=== PATIENT | female | born 1965 | race Two or more races ===

== ENCOUNTER 2023-02-17 17:48 | Emergency (ER) | payer BC ==
[~2023-02-17] VITALS: Ht 167.6 cm; Wt 48.1 kg
--- NOTE | 2023-02-17 18:52 | NUR ---
pt was bib RA DUE TO ALC INTOXICATION. NEIGHBORS CALLED 911, SHE WAS WANDERING THE STREETS. PT PUT ON BED AND WAS RESTRAINTS 2POINTS, DUE TO UNCONTROLLED BEHAVIOR. PUT ON MONITOR AND PULSE.
[2023-02-17 20:40] VITALS: BP 113/89
--- NOTE | 2023-02-17 20:40 | NUR ---
Patient discharged to home in stable condition. Written and verbal after care instructions given. Patient verbalizes understanding of instruction.
== END 2023-02-17 20:41 | disposition home or self-care (01) ==
LOC: ER 18:15
DX: F10.129 Alcohol abuse with intoxication, unspecified (principal); Z60.2 Problems related to living alone; Y90.9 Presence of alcohol in blood, level not specified

== ENCOUNTER 2025-05-31 20:10 | Emergency (ER) | payer BC ==
[~2025-05-31] VITALS: Ht 165.1 cm; Wt 63.5 kg
[2025-05-31 20:12] VITALS: TEMP 98.3
[2025-05-31 20:35] LABS: PLATELET COUNT (AUTO) 527 K/uL (150-450); RED BLOOD CELL COUNT(AUTO) 4.17 MIL/uL (4.0-5.2); RED CELL DISTRIBUTION WIDTH 15.6 % (11.5-15.0); WHITE BLOOD COUNT (AUTO) 5.8 K/uL (4.3-11.0)
[2025-05-31 20:44] LABS: CALCIUM, SERUM 8.4 mg/dL (8.5-10.1); CREATININE 0.4 mg/dL (0.6-1.3); SODIUM SERUM 137 mmol/L (136-145); UREA NITROGEN, BLOOD 8 mg/dL (7-18)
[2025-05-31 20:50] LABS: ALCOHOL, BLOOD 68 mg/dL (0-10); ASPARTATE AMINOTRANSFERASE 65 U/L (15-37); TOTAL PROTEIN, SERUM 6.9 g/dL (6.4-8.2)
[2025-05-31 22:56] VITALS: BP 120/74; O2SAT 98
[2025-05-31 23:13] LABS: AMPHETAMINE, URINE NEGATIVE (NEGATIVE); BARBITURATE, URINE POSITIVE (NEGATIVE); BENZODIAZEPINE, URINE NEGATIVE (NEGATIVE); CANNABINOID, URINE NEGATIVE (NEGATIVE); COCCAINE, URINE NEGATIVE (NEGATIVE); OPIATE, URINE NEGATIVE (NEGATIVE)
== END 2025-05-31 22:57 | disposition home or self-care (01) ==
LOC: ER 20:12
DX: F10.129 Alcohol abuse with intoxication, unspecified (principal); Y90.3 Blood alcohol level of 60-79 mg/100 ml; Z79.899 Other long term (current) drug therapy; Z20.822 Contact with and (suspected) exposure to COVID-19
CPT/HCPCS: 36415; 80048-TC; 80076-TC; 82962-TC; 84484-TC; 85025-TC; G0480